=== PATIENT | female | born 1985 | race Caucasian/White ===

== ENCOUNTER 2016-10-19 15:26 | Emergency (ER) | payer BC ==
[2016-10-19 15:45] VITALS: BP 139/80
--- NOTE | 2016-10-19 17:04 | ERNOTE ---
Lower Extremity HPI - Narrative Date of Service: 10/19/16 - General Lower Extremities Pain: ankle: left - Immun/Allergies/Home Medications Immunizations: IMMUNIZATION HX Immunizations Up to Date Yes Allergies/Adverse Reactions: Allergies Allergy/AdvReac Type Severity Reaction Status Date / Time No Known Allergies Allergy Verified 10/19/16 15:45 Home Medications: HOME MEDICATIONS Levothyroxine Sodium [Levoxyl] 25 mcg PO DAILY 04/10/16 [Last Taken Unknown] oxyCODONE HCL/ACETAMINOPHEN [Percocet 5 MG/325 MG] 1 tab PO Q4H PRN #20 tab 07/26 [Last Taken Unknown] - History of Present Illness Narrative: Pt. comes in with c/oL medial and anterior ankle pain after she tripped over a baby gate and fell this morning prior to arrival. Pt. states that she heard a snap and has not been able to put pressure on it since. Pt. denies any numbness or tingling or prehospital treatment. Review of Systems - Review of Systems Constitutional: Present: no symptoms reported. Absent: recent illness, fever, chills, fatigue, malaise EYE: Present: no symptoms reported ENT: Present: no symptoms reported Respiratory: Present: no symptoms reported. Absent: shortness of breath, cough , wheezing Cardiology: Present: no symptoms reported. Absent: chest pain, palpitations, edema Gastrointestinal/Abdominal: Present: no symptoms reported Genitourinary: Present: no symptoms reported Musculoskeletal: Present: joint pain - L ankle Skin: Present: no symptoms reported. Absent: rash, change in color Neurological: Present: no symptoms reported. Absent: headache, dizziness/light- headedness, numbness, tingling All Other Systems: All systems neg except as marked - Patient's Past Medical History Patient History - Medical: Headache, Hypothyroidism, Migraines Patient History - Cancer: No Hx of Cancer Patient History - Surgical Procedures: , Tubal Ligation - Social History Living Situations: home Smoking Status: Never smoker Have you smoked in the past 12 months: No Alcohol Use: none Drug Use: none Physical Exam - Physical Exam General Appearance: Present: wd/wn, alert, no apparent distress Eye Exam: Normal inspection: bilateral, PERRL: bilateral, EOMI: bilateral Neck: Present: normal inspection Respiratory: Present: no respiratory distress, normal breath sounds, no accessory muscle use, chest nontender, lungs clear Cardiovascular/Chest: Present: regular rate, rhythm, no murmur, normal peripheral pulses Back Exam: Present: normal inspection, normal range of motion, no CVA tenderness , no vertebral tenderness Extremity Exam: Present: decreased range of motion, joint swelling - L ankle, other - tender Medial and anterior L ankle Neurological Exam: Present: alert, oriented, normal mood/affect, no motor/ sensory deficits Skin Exam: Present: normal color, warm/dry. Absent: pallor, skin rash ED Progress - Date and Time Seen: Date and Time: 10/19/16 17:08 Discussed with Raf Montoya and juancho splint pt. and send pt for follow up first thing tomorrow morning. - Vital Signs Patient's Vital Signs:: I have reviewed the patient's vital signs. Vital Signs: Vital Signs 10/19/16 15:43 Pulse Rate 82 Respiratory 14 Rate Blood Pressure 139/80 O2 Sat by Pulse 98 Oximetry - X-Ray X-Ray #1 X-Ray: ankle Interpretation: Interp. by me X-ray Comments: comminuted medial malleolar fracture - Progress/Reassessment Chief Complaint: Ankle Injury/ Pain Departure Clinical Impression: Medial malleolar fracture Qualifiers: Encounter type: initial encounter Fracture type: closed Fracture alignment: nondisplaced Laterality: left Qualified Code(s): S82.55XA - Nondisplaced fracture of medial malleolus of left tibia, initial encounter for closed fracture - Departure Disposition: Home self-care Condition: Good Instructions: Medial or Posterior Malleolus Fracture Treated With ORIF Additional Instructions: Please follow up with orthopedics office in the morning call for appointment at 0900. Do not put weight on this leg. Prescriptions: oxyCODONE HCL/ACETAMINOPHEN [Percocet 5 MG/325 MG] 1 tab PO Q4H PRN #20 tab PRN Reason: Pain
[2016-10-19] MEDS ORDERED: oxyCODONE HCL/ACETAMINOPHEN 1 TAB TABLET PO ONE (17:11)
[2016-10-19] MEDS ORDERED: oxyCODONE HCL/ACETAMINOPHEN 1 TAB TABLET ONE (17:14)
== END 2016-10-19 17:19 | disposition home or self-care (01) ==
LOC: ER 15:26
DX: S82.55XA Nondisplaced fracture of medial malleolus of left tibia, initial encounter for closed fracture (principal); W18.09XA Striking against other object with subsequent fall, initial encounter

== ENCOUNTER 2016-10-26 08:44 | Observation (INO) | payer BC ==
[~2016-10-26 08:44] MED LIST: ONDANSETRON HCL/PF 2 MG/ML VIAL IV PRN; RINGERS SOLUTION,LACTATED 1,000 ML IV PRN; ceFAZolin SODIUM 1 GM VIAL IV PRN
[2016-10-26] MEDS ORDERED: RINGERS SOLUTION,LACTATED 1,000 ML IV ONE ×2 (09:00→10:55)
[2016-10-26] MEDS ORDERED: BUPIVACAINE HCL 50 ML VIAL IJ ONE (11:50)
--- NOTE | 2016-10-26 12:11 | OR ---
Operative Report - Dictated Report Narrative: Date: 10/26/2016 Surgeon: Beka Samaniego M.D. Polymer Specialist: Raf Montoya PA-C Anesthesia: General plus popliteal block Preoperative diagnosis: Left displaced medial malleolus Fracture. Postoperative diagnosis: Left displaced medial malleolus Fracture. Procedure: 1. Open reduction internal fixation left placed medial malleolus fracture. 2. Intra-operative interpretation of radiographs. Estimated blood loss: None Tourniquet time: 71 Minutes at 300 millimeters mercury Retained implants: Montoya & Nephew 4.0 mm cannulated partially threaded cancellus screws in the medial malleolus x 2, Montoya and nephew 3.5 mm 4 hole one third tubular plate and associated nonlocking screws 2 Specimens: None Complications: None Indications: Blanca is a 31-year-old female who tripped over a baby gate at home and sustained an inversion injury to the left ankle. They were seen in the emergency department with images obtained revealing the above injury. They were seen in clinic where the skin was examined and felt to be amenable to surgical treatment. The risks, benefits, and treatment options were discussed with the patient and the plan for ORIF of the medial malleolus was discussed. Risks were reviewed including , blood clots, nerve/tendon/blood vessel injury, malunion, nonunion, failure of implants, prominent implants, arthrosis, persistent pain, need for additional procedures. Procedure: After a timeout, general anesthetic was administered followed by induction of general anesthesia without complication. The patient was placed supine on the operating table with a bone foam ramp under the operative leg and a well-padded tourniquet was applied to the operative thigh. The splint was removed and the leg was pre-scrubbed with chlorhexidine then prepped and draped in a standard sterile fashion. Extremity was exsanguinated and tourniquet was inflated. Attention was turned to the medial malleolus. Curvilinear incision was made over the anterior medial aspect of the distal tibia. Care was taken to protect the saphenous vein and nerve. The medial malleolus fracture was identified and the soft tissues elevated off the bony edges. Hematoma was evacuated from the fracture site. The joint was visualized and there was an impaction fragment of the anterior medial shoulder with minimal soft tissue attachment. A portion of articular cartilage was attached to this fragment comprising the very anterior most aspect of the medial shoulder of the mortise. Given the small size of the fragment as well as its minimal soft tissue attachment it was elected to excise the fragment. The joint was thoroughly irrigated. Preliminary fixation with a reduction clamp was placed across the fracture of the medial malleolus and the reduction was confirmed via fluoroscopy and found to be near anatomic. Next, two 1.6 mm guidewires were placed from medial to lateral perpendicular to the fracture one more anterior and the other more posterior. These were over drilled and 24.0 mm x 42 mm cannulated screws were advanced over each guidewire providing good compression across her fracture site. The position of the screws was confirmed via fluoroscopy. The [id number]-[id number] reduction clamp was then removed and we noted good maintenance of our reduction. Next we turned our attention to placing a buttress plate given the vertical orientation of her fracture. A 4 hole 3.5 mm one third tubular plate was chosen. Our initial hole was drilled with a 2.7 mm drill just proximal to the proximal most tip of the fracture line. An appropriate length screw was then placed through the second distal-most hole of the un-bent one third tubular plate which was then compressed down to the bone providing excellent compression of our distal fracture fragment using the distal-most portion of the plate. A second cortical screw of appropriate length was then placed through the proximal-most hole of the one third tubular plate. Confirmed the position of the implants as well as the reduction via fluoroscopy. AP, mortise , lateral, and external rotation stress views were obtained and the mortise was noted to be stable and symmetrical. At this point the wound was copiously irrigated with normal saline and closed in a layered fashion. The deep fascia and periosteum was closed over the plate with interrupted 0 Vicryl suture. Interrupted 3-0 Vicryl was placed in a deep dermal fashion followed by interrupted 4-0 nylon in horizontal mattress fashion to close the skin. Xeroform , 4 x 4's, soft roll, and a well-padded AO splint was applied. Patient was then awoken and transferred to postanesthesia care in stable condition. All sponge, sharp, and instrument counts were correct prior to closing the wounds.
[2016-10-26] MEDS ORDERED: HYDROmorphone HCL 4 MG/ML DISP.SYRIN IV ONE (12:30)
[2016-10-26] MEDS ORDERED: HYDROmorphone HCL 2 MG/ML VIAL IV PRN (13:08)
[2016-10-26] MEDS ORDERED: RINGERS SOLUTION,LACTATED 1,000 ML IV PRN (13:09)
[2016-10-26] MEDS: METOCLOPRAMIDE HCL 5 MG/ML VIAL IV ONE (14:55)
[2016-10-26] MEDS: HYDROcodone/ACETAMINOPHEN 1 EACH TABLET PO PRN ×2 (15:40→16:13)
[2016-10-26] MEDS ORDERED: oxyCODONE HCL/ACETAMINOPHEN 1 TAB TABLET PO PRN (17:54)
[2016-10-26] MEDS ORDERED: MORPHINE SULFATE 4 MG/ML SYRG IV PRN (17:56)
[2016-10-26] MEDS ORDERED: ONDANSETRON HCL/PF 2 MG/ML VIAL IV PRN (17:57)
[2016-10-27] MEDS: METOCLOPRAMIDE HCL 5 MG/ML VIAL IV ONE (02:40)
[2016-10-27] MEDS: oxyCODONE HCL/ACETAMINOPHEN 1 TAB TABLET PO PRN ×2 (02:46→06:49)
[2016-10-27 07:31] VITALS: BP 131/72
--- NOTE | 2016-10-27 07:59 | DS ---
(1) Medial malleolar fracture Problem: Acute Qualifiers: Encounter type: initial encounter Fracture type: closed Fracture alignment: displaced Laterality: left Qualified Code(s): S82.52XA - Displaced fracture of medial malleolus of left tibia, initial encounter for closed fracture Procedures Performed: see notes below - WENCESLAO List Procedures: ORIF Medial mallous Fracture Discharge Disposition: Home self care Disposition: Home self-care Condition: Good Discharge Activity: Non-Weight bearing Discharge Diet: General/regular food Prescriptions (Any new or edited meds): oxyCODONE HCL/ACETAMINOPHEN [Percocet 5 MG/325 MG] 2 tab PO Q4H PRN #60 tablet PRN Reason: Moderate Pain Complete Home Medications List: Complete Home Medication List: Levothyroxine Sodium [Synthroid] 75 mcg PO DAILY 10/21/16 HYDROcodone/ACETAMINOPHEN [[place] 5-325] 1 each PO Q4H PRN #60 tablet 10/26/16 oxyCODONE HCL/ACETAMINOPHEN [Percocet 5 MG/325 MG] 2 tab PO Q4H PRN #60 tablet 10/27/16
--- NOTE | 2016-10-27 08:09 | PN ---
Subjective - Date and Time Seen Date: 10/27/16 Time: 08:05 Subjective Narrative: Pt feeling much better. No further nausea. Eating breakfast this AM. Pain not controlled with Hydrocodone, better with Percocet. Objective Objective Narrative: Dressing /splint dry to ankle. Neuro vascular intact to toes. Awake and alert. - Review of Systems Generalized/Overall Review: Reports: No Symptoms Reported Respiratory: Reports: No Symptoms Reported Cardiac: Reports: No Symptoms Reported Abdominal: Reports: No Symptoms Reported Musculoskeletal Complaints: Reports: Joint Pain - Vitals Vitals: Last Vital Signs Temp 36.6 C 10/27/16 08:02 Pulse 75 10/27/16 08:02 Resp 18 10/27/16 08:02 BP 131/72 10/27/16 08:02 Pulse Ox 95 10/27/16 08:02 Assessment/Plan Plan Narrative: Pt will DC home today. New prescription written for Oxycodone to take for break thru pain. Discussed no use of NSAIDs. Continue with elevation and NWB. Kep f/u appt. - Problems/Diagnosis (1) Medial malleolar fracture Problem: Acute Qualifiers: Encounter type: initial encounter Fracture type: closed Fracture alignment: displaced Laterality: left Qualified Code(s): S82.52XA - Displaced fracture of medial malleolus of left tibia, initial encounter for closed fracture
== END 2016-10-27 09:45 | disposition home or self-care (01) ==
LOC: AMB 08:44 → MS 17:34
PROVIDERS: ADMIT Orthopaedic Surgery; ATTEND Orthopaedic Surgery
PROC: 0QSH04Z Reposition Left Tibia with Internal Fixation Device, Open Approach (ICD-10-PCS; principal; 2016-10-26 10:15)
DX: S82.52XA Displaced fracture of medial malleolus of left tibia, initial encounter for closed fracture (principal); W01.0XXA Fall on same level from slipping, tripping and stumbling without subsequent striking against object, initial encounter
CPT/HCPCS: 27766; G0378

== ENCOUNTER 2017-06-21 03:16 | Emergency (ER) | payer BC ==
--- NOTE | 2017-06-21 03:43 | ERNOTE ---
Chest Pain/Cardiac HPI Chief Complaint: Chest Pain Time Seen by Provider: 06/21/17 03:32 Source: patient Exam Limitations: no limitations Immunizations: IMMUNIZATION HX Immunizations Up to Date Yes History of Influenza Vaccine No Hx Pneumococcal Vaccination No Allergies/Adverse Reactions: Allergies banana Allergy (Intermediate, Verified 10/26/16 08:59) Hives strawberry Allergy (Intermediate, Verified 10/26/16 08:59) Hives tomato Allergy (Intermediate, Verified 10/26/16 08:59) Hives Home Medications: HOME MEDICATIONS NK [No Home Medication] 06/21/17 [Last Taken Unknown] Narrative: Pt was at work and coming off of break back to work when she began to have sharp left upper chest pain radiating to her scapula and down the back of her left arm. Pain continues Timing: constant Severity/Quality: moderate, sharp Location: shoulder, back, left chest Chest Pain Radiation: arms - left, shoulders - left Activities at Onset: activity - non-strenuous Modifying Factors - Improves: Present: nothing Modifying Factors - Worsens: Present: nothing Associated Symptoms: Present: denies symptoms Prior Chest Pain/Cardiac Workup: Reports: no prior cardiac workup Review of Systems - Review of Systems Constitutional: Present: recent illness. Absent: fever EYE: Present: no symptoms reported ENT: Present: no symptoms reported Respiratory: Absent: shortness of breath, cough Cardiology: Present: See HPI Gastrointestinal/Abdominal: Present: nausea - yesterday, diarrhea - yesterday. Absent: vomiting, abdominal pain Genitourinary: Present: no symptoms reported Musculoskeletal: Present: no symptoms reported Skin: Present: no symptoms reported Neurological: Absent: headache, numbness, tingling Endocrine: Present: no symptoms reported Hematologic/Lymphatic: Present: no symptoms reported Psych: Present: no symptoms reported - Patient's Past Medical History Patient History - Medical: Headache, Hypothyroidism, Other Patient History - Cardiac/Respiratory: Asthma Patient History - Cancer: No Hx of Cancer Patient History - Surgical Procedures: Tubal Ligation, Other Patient History - Other: None LMP (Calendar): 10/26/16 - Family History Grandfather-Maternal Family History - Medical: Diabetes Type 2 Family History - Cardiac/Respiratory: No pertinent hx Family History - Cancer: No pertinent family hx Grandfather-Paternal Family History - Medical: No pertinent hx Family History - Cardiac/Respiratory: Myocardial Infarction Family History - Cancer: No pertinent family hx Grandmother-Paternal Family History - Medical: No pertinent hx Family History - Cardiac/Respiratory: No pertinent hx Family History - Cancer: No pertinent family hx - Social History Living Situations: spouse Abuse History: No History of abuse Psych History: No pertinent hx Smoking Status: Current some day smoker Have you smoked in the past 12 months: No Do you dip or chew tobacco: No Patient requests Smoking Cessation Consult: No Initiate information on Smoking Cessation: No Alcohol Use: none Drug Use: other - Immunizations Immunizations Up to Date: Yes Hx Pneumococcal Vaccination: No History of Influenza Vaccine: No Physical Exam - Physical Exam General Appearance: Present: wd/wn, alert, no apparent distress - sitting on the side of the bed Head Exam: Present: normal inspection, no evidence of injury Eye Exam: Normal inspection: bilateral, PERRL: bilateral Ears, Nose, Throat: Present: normal ENT inspection Neck: Present: normal inspection, nontender Respiratory: Present: no respiratory distress, normal breath sounds, no accessory muscle use, lungs clear Cardiovascular/Chest: Present: regular rate, rhythm, no murmur, normal peripheral pulses Gastrointestinal/Abdominal: Present: normal bowel sounds, nondistended, soft Back Exam: Present: normal inspection, normal range of motion, no CVA tenderness , no vertebral tenderness Extremity Exam: Present: normal inspection, non-tender, normal range of motion Neurological Exam: Present: alert, oriented, normal mood/affect, no motor/ sensory deficits, nurse rn bsn II-XII nml as tested Skin Exam: Present: normal color, warm/dry ED Progress - Results and Orders Patient's Lab Results:: I have reviewed the patient's lab results. Results and Orders: Laboratory Tests 06/21/17 06/21/17 03:45 03:45 WBC 6.9 Hgb 12.0 L Hct 34.5 L Plt Count 223 Sodium 142 Potassium 3.8 Chloride 106 Carbon Dioxide 27.4 Anion Gap 12.4 BUN 15 Creatinine 0.96 Random Glucose 79 Calcium 8.3 Total Bilirubin 0.4 AST 20 ALT 35 Alkaline Phosphatase 95 Troponin I Less than 0.017 Total Protein 6.9 Albumin 3.6 - Vital Signs Patient's Vital Signs:: I have reviewed the patient's vital signs. Vital Signs: Vital Signs 06/21/17 06/21/17 03:21 03:27 Temperature 36.5 C Pulse Rate 62 99 Respiratory 16 Rate Blood Pressure 122/79 O2 Sat by Pulse 99 Oximetry - EKG EKG: NSR EKG read: Interp. by me - X-Ray X-Ray #1 X-Ray: chest Interpretation: Interp. by me X-ray Comments: no acute changes - Progress/Reassessment Chief Complaint: Chest Pain Progress:: Improved Progress Note-Subjective: 06/21/17 05:10 Pt improved with GI coctail. discussed gastritis and OTC treatment. Encouraged her to use zantac or pepcid for 3-5 days. Departure - Departure Clinical Impression: Dyspepsia Disposition: Home self-care Condition: Good Instructions: Gastritis, Adult, [id number] Additional Instructions: Use zantac, or pepcid over the counter for 3-5 days. If symptoms return see you regular doctor for further evaluation. Referrals: Alena Uribe MD [Primary Care Provider] -
[2017-06-21 03:49] LABS: Hematocrit 34.5 % (37.0-47.0); Mean Cell Volume 88.5 fl (78-100); Mean Corpuscular Hemoglobin 30.8 pg (27-31); Mean Corpuscular Hgb Conc 34.8 g/dl (32-36); Mean Platelet Volume 8.7 fl (6.0-9.5); Neutrophil # 2.6 K/mm3 (1.3-6.0); Neutrophil % 37.4 % (42-75.0); Platelet Count 223 K/mm3 (150-450); Red Cell Distribution Width 13.3 % (11.5-14.0); White Blood Count 6.9 K/mm3 (4.0-10.5)
[2017-06-21 04:13] LABS: ALT 35 U/L (19-67); AST 20 U/L (0-48); Albumin * 3.6 gm/dl (3.4-5.0); Alkaline Phosphatase * 95 U/L (50-170); Anion Gap 12.4 mmol/L (6.8-13.8); BUN/Creatinine Ratio 15.6 (9.0-21.6); Bilirubin, Total 0.4 mg/dL (0.0-1.1); Blood Urea Nitrogen 15 mg/dL (3-23); Ca. Corrected For Albumin 8.3 mg/dL (8.4-10.2); Calcium * 8.3 mg/dL (7.9-10.9); Carbon Dioxide 27.4 mmol/L (24-32.6); Chloride 106 mmol/L (97-106); Glucose * 79 mg/dL (70-110); Potassium 3.8 mmol/L (3.4-4.6); Sodium 142 mmol/L (132-142); Total Protein 6.9 gm/dL (6.2-8.2); Troponin I Less than 0.017 ng/ml (0.00-0.10)
[2017-06-21] MEDS ORDERED: KETOROLAC TROMETHAMINE 60 MG/2 ML VIAL IM ONE ×2 (04:29→04:30)
[2017-06-21] MEDS ORDERED: LIDOCAINE HCL 20 ML UDC PO ONE (04:42)
[2017-06-21] MEDS ORDERED: SUCRALFATE 1 G/10 ML UDC PO ONE (04:42)
[2017-06-21] MEDS ORDERED: MAG HYDROX/ALUMINUM HYD/SIMETH 30 ML UDC PO ONE (04:42)
[2017-06-21 05:30] VITALS: BP 112/62
== END 2017-06-21 05:30 | disposition home or self-care (01) ==
LOC: ER 03:16
DX: R10.13 Epigastric pain (principal); F17.200 Nicotine dependence, unspecified, uncomplicated